=== PATIENT | female | born 1965 | race Caucasian/White ===

== ENCOUNTER 2021-10-11 15:26 | Outpatient (CLI) | payer OTHER, SELFPAY ==
[2021-10-11] MEDS: Regadenoson 0.4 MG/5 ML SYR IVP (14:39)
== END 2021-10-11 15:46 ==
PROVIDERS: Visit Provider Internal Medicine Interventional Cardiology
DX: R07.9 Chest pain, unspecified (principal); Z82.49 Family history of ischemic heart disease and other diseases of the circulatory system
CPT/HCPCS: J2785